=== PATIENT | male | born 1940 | race Caucasian/White ===

== ENCOUNTER → 2024-10-27 16:05 | Outpatient (REF) | payer MEDICARE, OTHER, SELFPAY ==
[2024-10-27 17:58] LABS: % Basophils 0.6 % (0-2); % Eosinophils 4.8 % (0-6); % Immature Granulocytes 0.5 % (0-0.5); % Lymphocytes 18.2 % (20.5-51.1); % Monocytes 8.9 % (1.7-9.3); Absolute Eosinophils 0.3 10^3/uL (0-0.7); Absolute Lymphocytes 1.1 10^3/uL (1.2-3.4); Absolute Monocytes 0.6 10^3/uL (0.1-0.6); Absolute Neutrophils 4.2 10^3/uL (1.4-6.5); Hematocrit 40.6 % (39.0-52.0); Hemoglobin 13.3 g/dL (13.0-18.0); Mean Corp Hgb Conc. 32.8 g/dL (33.0-37.0); Mean Corpuscular Hgb 30.3 pg (27.0-31.0); Mean Corpuscular Volume 92.5 fL (80.0-94.0); Mean Platelet Volume 10.1 fL (7.4-10.4); Nucleated Red Blood Cells % 0 % (-); Platelet Count 216 10^3/uL (130-400); Red Blood Cell Count 4.39 10^6/uL (4.70-6.10); Red Cell Dist. Width 13.9 % (11.5-14.5); White Blood Cell Count 6.3 10^3/uL (4.8-10.8)
[2024-10-27 18:13] LABS: AST (SGOT) 30 U/L (17-59); Albumin 3.7 g/dl (3.5-5.0); Alkaline Phosphatase 91 U/L (38-126); Blood Urea Nitrogen 23 mg/dl (9-20); Calcium 9.7 mg/dl (8.4-10.2); Carbon Dioxide 29 mmol/L (22-30); Chloride 105 mmol/L (98-107); Glucose 83 mg/dl (70-99); Potassium 4.5 mmol/L (3.5-5.1); Sodium 140 mmol/L (135-145); Total Bilirubin 0.8 mg/dl (0.2-1.3); Total Protein 6.2 g/dl (6.3-8.2); eGFR > 60.00
[2024-10-27 18:14] LABS: ALT (SGPT) 31 U/L (0-50); HDL Cholesterol 57 mg/dl; LDL Cholesterol, Calculated 79 mg/dl; Total Cholesterol 162 mg/dl (50-199); Triglyceride 132 mg/dl (10-149); Very Low Density Lipoprotein 26 mg/dl (0-30)
== END ==
LOC: REG 16:05
PROVIDERS: ATTENDING PHYSICIAN Internal Medicine
DX: E78.5 Hyperlipidemia, unspecified (principal)
CPT/HCPCS: 36415; 80053; 80061; 85025

== ENCOUNTER → 2025-02-14 18:05 | Outpatient (REF) | payer MEDICARE, OTHER, SELFPAY | LOC: MRI 3T 18:05 | PROVIDERS: ATTENDING PHYSICIAN Specialist; FAMILY PHYSICIAN Internal Medicine | DX: M25.561 Pain in right knee (principal); M17.11 Unilateral primary osteoarthritis, right knee | CPT/HCPCS: 73721 ==

== ENCOUNTER → 2025-04-06 08:55 | Outpatient (REF) | payer SELFPAY | LOC: REG 08:55 | PROVIDERS: FAMILY PHYSICIAN Internal Medicine | DX: Z12.9 Encounter for screening for malignant neoplasm, site unspecified (principal) | CPT/HCPCS: 36415 ==

== ENCOUNTER 2025-04-25 10:05 | Emergency (ER) | payer MEDICARE, OTHER, SELFPAY ==
[2025-04-25 10:07] VITALS: BP 180/82
[2025-04-25 10:45] VITALS: BMI 28.4
[2025-04-25 10:56] VITALS: BP 135/84
[2025-04-25 11:00] VITALS: BP 155/78
[2025-04-25 11:06] LABS: Hematocrit 39.9 % (39.0-52.0); Hemoglobin 13.3 g/dL (13.0-18.0); Mean Corp Hgb Conc. 33.3 g/dL (33.0-37.0); Mean Corpuscular Volume 92.6 fL (80.0-94.0); Nucleated Red Blood Cells % 0 % (-); Platelet Count 199 10^3/uL (130-400); Red Cell Dist. Width 13.6 % (11.5-14.5)
--- NOTE | 2025-04-25 11:11 | ED.GENMED ---
History of Present Illness
General
Chief Complaint: Cardiac Symptoms
Time Seen by Provider: 04/25/25 11:05
History of Present Illness
History of Present Illness:
84-year-old male with history of hyperlipidemia presents to the emergency department for evaluation of left-sided chest/shoulder pain radiating to the left neck for the past 2 days. Pain is intermittent, not clearly provoked by any particular
movement or exertion. 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 No pleuritic pain. He woke this morning pain-free when he began approximately 10 minutes later. Currently
pain-free. Reports some pain radiates to the left elbow, denies any paresthesias, shortness of breath, fever, chills, or sweats. Last echocardiogram was 2022 showing mildly dilated root but no other abnormalities
Past History
Past History
ED Past Medical History: Hypercholesterolemia and Other (BPH, sleep apnea)
ED Past Surgical History: Orthopedic
Social History
Tobacco: Non-smoker
Alcohol: Occasional
Drug: None
Living: with family
Employment: Employed
Family History
Family History: Negative Diabetes or Early CAD
Review of Systems
Review of Systems
Allergies reviewed?: Yes
All Other Systems: ROS reviewed and negative except as documented in HPI and ROS
Phy Exam
Physical Exam
Physical Exam:
GEN: Well appearing, NAD, WDWN
HEENT: Oral mucosa moist, no scleral icterus
Cardiac: Regular rate and rhythm, no murmurs pulses 2+ bilaterally and symmetric
Lung: No respiratory distress, no tachypnea, lungs clear to auscultation
MSK: No gross deformity or injuries left shoulder range of motion medication. Left cervical spine musculature is nontender and range of motion of the C-spine is normal
Skin: Good color, no pallor or jaundice, no rashes
Neuro: AO x3, moves all extremities freely
Psych: Calm, cooperative
Course
Orders/Labs/Results
Orders:
Orders
04/25/25 10:09
ECG [Electrocardiogram (*1)] Urgent
Reason for Study: Chest Pain
EKG- Treatment ONCE
04/25/25 10:57
CBC/With Diff [Complete Blood Count/With Diff] Urgent
Comprehensive Metabolic Panel Urgent
Troponin I Urgent
04/25/25 11:27
CR Chest - 2 Views Urgent
Comment:
Reason For Exam: chest/L shoulder pain
Abnormal Lab Results
04/25/25
10:57
RBC 4.31 L 10^6/uL
(4.70-6.10)
Absolute Lymphs (auto) 0.8 L 10^3/uL
(1.2-3.4)
Lymphocytes % 15.2 L %
(20.5-51.1)
Chloride 108 H mmol/L
(98-107)
BUN 23 H mg/dl
(9-20)
04/25/25 10:57
04/25/25 10:57
Vital Signs
Initial and Last Documented VS:
Initial Vital Signs
Temp Pulse Resp BP Pulse Ox
97.9 F 64 18 180/82 99
04/25/25 10:07 04/25/25 10:07 04/25/25 10:07 04/25/25 10:07 04/25/25 10:07
Last Documented Vital Signs
Temp Pulse Resp BP Pulse Ox
97.9 F 55 12 155/78 97
04/25/25 10:07 04/25/25 12:30 04/25/25 12:30 04/25/25 11:00 04/25/25 12:30
MDM/Problems Addressed
MDM/Problems Addressed:
Patient's chest pain is most likely degenerative or musculoskeletal etiology such as cervical radiculopathy, he has no exertional pain that would be concerning for ACS. EKG and troponin negative. Recommend he follow-up with his spanish instructor for
further evaluation will prescribe NSAIDs for likely cervical radiculopathy
*Pulse Oximetry
SaO2: 97
Oxygen Mode of Delivery: Room air
Patient hypoxic: no
*Critical Care Note
Total Time (30-74mins, 75-104mins- exclusive of procedures): Not Applicable
ED Attending Note
-
Portions of this chart may have been created with voice recognition software.� Occasional wrong word or��sound alike� substitutions may have occurred due to the inherent limitations of voice recognition software.
Discharge Plan
Departure
Patient Disposition: Home (Routine Discharge)
Date of Disposition: 04/25/25
Time of Disposition: 12:46
Patient with high blood pressure during this ER visit?: No
Discharge Problem:
Cervical radiculopathy
Instructions: Radiculopathy of the neck and back (including sciatica) (DC)
Prescriptions:
New
celecoxib 200 mg capsule
200 mg PO BID Qty: 14 0RF
No Action
atorvastatin 10 MG tablet
10 mg PO MOTUWETHFR
aspirin [Royer Low Dose Aspirin] 81 MG tablet,delayed release (DR/EC)
81 mg PO MOTUWETHFR
fluticasone propionate 1 SPRAY spray,suspension
1 spray intranasal DAILY
finasteride 5 MG tablet
5 mg PO DAILY
glucos sul [id number] [Glucosamine Chondroitin] 1 EACH capsule
1 ea PO DAILY
naproxen sodium [Aleve] 220 MG tablet
440 mg PO BIDPRN PRN (Reason: pain) Qty: 1 0RF
tramadol 50 MG tablet
50 mg PO TIDPRN PRN (Reason: severe pain) Qty: 12 0RF
Referrals:
Kieran Wells MD [Family Provider, Internal Medicine]
Activity Restrictions/Additional Instructions:
See your spanish instructor next month as planned
Interventions
Interventions:
*Risk Screen - Suicide Last Done: 04/25/25 10:07
*General Assessment Last Done: 04/25/25 10:07
*Neglect/Abuse Screening Last Done: 04/25/25 10:47
*ED- Fall Risk Assessment Last Done: 04/25/25 10:46
*ED COVID-19 Vaccine History Last Done: 04/25/25 10:46
*ED Influenza Vaccine History Last Done: 04/25/25 10:46
*Nursing Disposition Last Done: 04/25/25 13:07
ED- Pulmonary Assessment Last Done: 04/25/25 10:48
ED- Cardiac Assessment Last Done: 04/25/25 10:48
Discharge Date and Time
Discharge Date/Time: 04/25/25 13:08
Print Language: BELARUSIAN
[2025-04-25 11:18] LABS: ALT (SGPT) 31 U/L (0-50); AST (SGOT) 31 U/L (17-59); Albumin 4.1 g/dl (3.5-5.0); Alkaline Phosphatase 79 U/L (38-126); Blood Urea Nitrogen 23 mg/dl (9-20); Calcium 9.1 mg/dl (8.4-10.2); Carbon Dioxide 26 mmol/L (22-30); Chloride 108 mmol/L (98-107); Estimated Creatinine Clearance 56 ml/min; Glucose 88 mg/dl (70-99); Potassium 4.7 mmol/L (3.5-5.1); Sodium 138 mmol/L (135-145); Total Protein 6.7 g/dl (6.3-8.2); eGFR > 60.00
[2025-04-25 11:28] LABS: Troponin I < 0.012 ng/ml
== END 2025-04-25 13:08 | disposition home or self-care (01) ==
LOC: EMR 10:05
PROVIDERS: EMERGENCY PHYSICIAN Student in an Organized Health Care Education/Training Program; FAMILY PHYSICIAN Internal Medicine
DX: M54.12 Radiculopathy, cervical region (principal); E78.00 Pure hypercholesterolemia, unspecified; G47.30 Sleep apnea, unspecified
CPT/HCPCS: 99285; 71046; 80053; 84484; 85025; 93005

== ENCOUNTER → 2025-05-14 09:23 | Outpatient (REF) | payer MEDICARE, OTHER, SELFPAY | LOC: PAVMRI 09:23 | PROVIDERS: ATTENDING PHYSICIAN Physician Assistant Surgical; FAMILY PHYSICIAN Internal Medicine | DX: M54.12 Radiculopathy, cervical region (principal) | CPT/HCPCS: 72141 ==

== ENCOUNTER → 2025-05-26 09:01 | Outpatient (REF) | payer MEDICARE, OTHER, SELFPAY | LOC: RCS 09:01 | PROVIDERS: ATTENDING PHYSICIAN Internal Medicine; FAMILY PHYSICIAN Internal Medicine | DX: R00.1 Bradycardia, unspecified (principal); I45.10 Unspecified right bundle-branch block; I77.89 Other specified disorders of arteries and arterioles | CPT/HCPCS: 93306 ==